=== PATIENT | female | born 1995 | race Caucasian/White ===

== ENCOUNTER 2022-11-08 00:01 | Emergency (ER) | payer SELFPAY ==
[~2022-11-08] VITALS: Ht 170.2 cm; Wt 88.4 kg
[2022-11-08] MEDS ORDERED: NS 1,000 ML IV ONE (00:55)
[2022-11-08] MEDS ORDERED: UNRESOLVED CLARIFICATION ENTRY XX STA (00:57)
[2022-11-08 04:00] VITALS: BP 101/55
== END 2022-11-08 04:24 | disposition home or self-care (01) ==
LOC: M ED 00:01 → EDBD 00:01 → M ED 04:24
DX: O20.0 Threatened abortion (principal); Z3A.01 Less than 8 weeks gestation of pregnancy; Z79.899 Other long term (current) drug therapy